=== PATIENT | male | born 1960 ===

== ENCOUNTER 2021-07-23 18:08 | Inpatient (IN) | payer OTHER ==
[~2021-07-23] VITALS: Ht 186.7 cm; Wt 135.3 kg
[2021-07-23] MEDS ORDERED: IV RINGERS SOLUTION,LACTATED 1,000 ML IV ONE (18:30)
[2021-07-23] MEDS ORDERED: MORPHINE SULFATE 2 MG/ML DISP.SYRIN. IV ONE (18:45)
--- NOTE | 2021-07-23 18:46 | PHYS DOC ---
Past History Past Medical History: A-Fib, Diabetes (CHIP AVILA) Past Surgical History: No Surgical History (CHIP AVILA) General Adult EDM: Chief Complaint: SYNCOPE HPI: HPI: Patient is a 61 year old male with history of A. fib and diabetes type 2 known COVID positive who presents with 5-day history of increased weakness and diarrhea. Patient states that he had a syncopal episode at home where he did hit his head. Patient reports associated nausea and 4/10 general abdominal pain. 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 Patient denies use of daily oxygen at home. Patient denies headache, vision changes, chest pain, palpitations, shortness of breath, cough, constipation, emesis. (CHIP AVILA) Review of Systems: Review of Systems: Constitutional: Denies fever or chills Eyes: Denies change in visual acuity HENT: Denies nasal congestion or sore throat Respiratory: See HPI Cardiovascular: See HPI GI: See HPI : Denies dysuria or hematuria Musculoskeletal: Denies back pain or joint pain Integument: Denies rash or other skin lesions Neurologic: See HPI (CHIP AVILA) Current Medications: Current Meds: Current Medications Medications (Trade) Dose Ordered Sig/Vannessa Start Time Stop Time Status Last Admin Dose Admin Lactated Ringer's 1,000 ml @ 1,000 mls/hr 1X ONCE 07/23/21 18:30 07/23/21 19:29 UNV (CHIP AVILA) Physical Exam: PE: Constitutional: Patient appears extremely fatigued, well developed, well nourished. HENT: Normocephalic, atraumatic, bilateral external ears normal, oropharynx moist, nose normal. Eyes: PERRLA, EOMI, conjunctiva normal, no discharge. Neck: Normal range of motion, no tenderness, supple, no stridor. Cardiovascular: Regular heart rate, no edema. Lungs & Thorax: Breath sounds decreased diffusely. Abdomen: Bowel sounds normal, soft, no tenderness, no masses, no pulsatile masses. Skin: Warm, dry, no erythema, no rash. Back: No tenderness, no CVA tenderness. Extremities: No tenderness, no cyanosis, no clubbing, ROM intact, no edema. Neurologic: Alert and oriented x3, normal motor function, normal sensory function, no focal deficits noted. (CHIP AVILA) Current Patient Data: Labs: Laboratory Tests Test 07/23/21 18:50 White Blood Count 5.4 x10^3/uL (4.0-11.0) Red Blood Count 6.36 x10^6/uL (4.30-5.70) Hemoglobin 16.6 g/dL (13.0-17.5) Hematocrit 51.4 % (39.0-53.0) Mean Corpuscular Volume 81 fL (79-100) Mean Corpuscular Hemoglobin 26 pg (25-35) Mean Corpuscular Hemoglobin Concent 32 g/dL (31-37) Red Cell Distribution Width 19.6 % (11.5-14.5) Platelet Count 120 x10^3/uL (140-400) Neutrophils (%) (Auto) 64 % (31-73) Lymphocytes (%) (Auto) 23 % (24-48) Monocytes (%) (Auto) 13 % (0-9) Eosinophils (%) (Auto) 0 % (0-3) Basophils (%) (Auto) 0 % (0-3) Neutrophils # (Auto) 3.4 x10^3uL (1.8-7.7) Lymphocytes # (Auto) 1.2 x10^3/uL (1.0-4.8) Monocytes # (Auto) 0.7 x10^3/uL (0.0-1.1) Eosinophils # (Auto) 0.0 x10^3/uL (0.0-0.7) Basophils # (Auto) 0.0 x10^3/uL (0.0-0.2) Sodium Level 134 mmol/L (136-145) Potassium Level 3.6 mmol/L (3.5-5.1) Chloride Level 97 mmol/L (98-107) Carbon Dioxide Level 26 mmol/L (21-32) Anion Gap 11 (6-14) Blood Urea Nitrogen 19 mg/dL (8-26) Creatinine 1.1 mg/dL (0.7-1.3) Estimated GFR (Cockcroft-Gault) 67.8 BUN/Creatinine Ratio 17 (6-20) Glucose Level 117 mg/dL (70-99) Calcium Level 7.7 mg/dL (8.5-10.1) Total Bilirubin 0.4 mg/dL (0.2-1.0) Aspartate Amino Transf (AST/SGOT) 26 U/L (15-37) Alanine Aminotransferase (ALT/SGPT) 24 U/L (16-63) Alkaline Phosphatase 127 U/L (46-116) Troponin I High Sensitivity 46 ng/L (4-75) Total Protein 7.1 g/dL (6.4-8.2) Albumin 3.0 g/dL (3.4-5.0) Albumin/Globulin Ratio 0.7 (1.0-1.7) Vital Signs: Vital Signs Date Time Temp Pulse Resp B/P (MAP) Pulse Ox O2 Delivery O2 Flow Rate FiO2 07/23/21 18:30 99.3 68 22 102/66 (78) 95 Nasal Cannula 4.0 (CHIP AVILA) EKG: EKG: EKG Interpreted by Dr. Chiang: 101 bpm irregularly irregular rhythm. No STEMI. (CHIP AVILA) Radiology/Procedures: Radiology/Procedures: PROCEDURE: CT HEAD AND CERVICAL SPINE WO Exam: CT head and cervical spine without contrast INDICATION: Syncope TECHNIQUE: Sequential axial images through the head and cervical spine were obtained without the administration of IV contrast. Exposure: One or more of the following in the visualized dose reduction techniques were utilized for this examination: 1. Automated exposure control 2. Adjustment of the MA and/or KV according to patient size 3. Use of iterative of reconstructive technique Comparisons: None FINDINGS: Head: No focal parenchymal lesion or hemorrhage is identified. There is no midline shift or sulcal effacement. No acute vascular territory infarction is identified. Perez-white distinction is preserved. The ventricular system is within normal limits without compression hydrocephalus. The basal cisterns are well maintained. The visualized portions of the paranasal sinuses and mastoid air cells are well- pneumatized. No acute fractures. Cervical spine: Reversal of the normal cervical lordosis which may positional. Vertebral body heights are well-maintained. Fracture to the cervical spine is not identified. Multilevel spondylotic change in cervical spine with degenerative disc disease greatest at C6-C7. Mild bilateral facet arthropathy is also noted in the c ervical spine. Visualized paraspinal soft tissues are unremarkable. IMPRESSION: 1. No acute intracranial abnormality. 2. Negative CT C-spine for acute traumatic injury. Electronically signed by: Lin Portillo MD (07/23/2021 7:04 PM) [facility]CHIP [facility] Heart Score: C/O Chest Pain: No (CHIP AVILA) Course & Med Decision Making: Course & Med Decision Making Pertinent Labs and Imaging studies reviewed. (See chart for details) Patient is known Covid positive and now has a new oxygen requirement. Patient will be admitted to hospitalist service. (CHIP AVILA) Dragon Disclaimer: Dragon Disclaimer: This electronic medical record was generated, in whole or in part, using a voice recognition dictation system. (CHIP AVILA) Departure Departure: Impression: Primary Impression: Pneumonia due to COVID-19 virus Additional Impression: Respiratory failure with hypoxia Qualified Codes: J96.01 - Acute respiratory failure with hypoxia Disposition: ADMITTED INPATIENT Admitting Physician: German Maddox (CHIP AVILA) Condition: GUARDED Referrals: PCP,ARTURO (PCP) Attending Signature Attending Signature I have participated in the care of this patient and I have reviewed and agree with all pertinent clinical information above including history, exam, and recommendations. (KENNETH CHIANG MD) CHIP AVILA Jul 23, 2021 18:46 KENNETH CHIANG MD Jul 24, 2021 04:47
[2021-07-23] MEDS ORDERED: DEXAMETHASONE SOD PHOS 10 MG/ML VIAL. ONE (18:51)
--- NOTE | 2021-07-23 18:53 | EKG ---
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
[2021-07-23] MEDS ORDERED: DEXAMETHASONE SOD PHOS 10 MG/ML VIAL. IVP ONE (19:00)
--- NOTE | 2021-07-23 19:07 | RAD ---
Exam: CT head and cervical spine without contrast INDICATION: Syncope TECHNIQUE: Sequential axial images through the head and cervical spine were obtained without the admi nistration of IV contrast. Exposure: One or more of the following in the visualized dose reduction techniques were utilized for this examination: 1. Automated exposure control 2. Adjustment of the MA and/or KV according to patient size 3. Use of iterative of reconstructive technique Comparisons: None FINDINGS: Head: No focal parenchymal lesion or hemorrhage is identified. There is no midline shift or sulcal effaceme nt. No acute vascular territory infarction is identified. Perez-white distinction is preserved. The ventricular system is within normal limits without compression hydrocephalus. The basal cisterns are well maintained. The visualized portions of the paranasal sinuses and mastoid air cells are well-pneumatized. No acute fractures. Cervical spine: Reversal of the normal cervical lordosis which may positional. Vertebral body heights are well-mainta ined. Fracture to the cervical spine is not identified. Multilevel spondylotic change in cervical spine with degenerative disc disease greatest at C6-C7. Mil d bilateral facet arthropathy is also noted in the cervical spine. Visualized paraspinal soft tissues are unremarkable. IMPRESSION: 1. No acute intracranial abnormality. 2. Negative CT C-spine for acute traumatic injury. Electronically signed by: Lin Portillo MD (07/23/2021 7:04 PM) [facility]
[2021-07-23] MEDS ORDERED: ONDANSETRON PF 4 MG/2 ML VIAL. ONE (19:08)
[2021-07-23 19:32] LABS: BASO % 0 % (0-3); EOS % 0 % (0-3); HEMATOCRIT 51.4 % (39.0-53.0); HEMOGLOBIN 16.6 g/dL (13.0-17.5); LYMPH # 1.2 x10^3/uL (1.0-4.8); LYMPH % 23 % (24-48); MEAN CORPUSCULAR HEMOGLOBIN 26 pg (25-35); MEAN CORPUSCULAR HGB CONC 32 g/dL (31-37); MEAN CORPUSCULAR VOLUME 81 fL (79-100); MONO # 0.7 x10^3/uL (0.0-1.1); MONO % 13 % (0-9); NEUT # 3.4 x10^3uL (1.8-7.7); NEUT % 64 % (31-73); PLATELET COUNT 120 x10^3/uL (140-400); RED BLOOD COUNT 6.36 x10^6/uL (4.30-5.70); RED CELL DISTRIBUTION WIDTH 19.6 % (11.5-14.5); WHITE BLOOD COUNT 5.4 x10^3/uL (4.0-11.0)
[2021-07-23 19:45] LABS: CALCIUM 7.7 mg/dL (8.5-10.1); CREATININE 1.1 mg/dL (0.7-1.3); GFR 67.8; POTASSIUM 3.6 mmol/L (3.5-5.1)
[2021-07-23 19:51] LABS: ALBUMIN/GLOBULIN RATIO 0.7 (1.0-1.7); TOTAL BILIRUBIN 0.4 mg/dL (0.2-1.0); TOTAL PROTEIN 7.1 g/dL (6.4-8.2)
--- NOTE | 2021-07-23 20:08 | RAD ---
EXAM: AP View of the chest DATE: 07/23/2021 6:22 PM INDICATION: Reason: syncope / Spl. Instructions: / History: COMPARISON: No Prior FINDINGS: Patchy opacities right mid lung and right lung base as well as peripheral left lung base. The heart is upper limits normal in size. No pleural effusion or pneumothorax. IMPRESSION: Bilateral parenchymal airspace opacities likely atelectasis or consolidative process such as pneumoni a. Imaging follow-up to resolution is recommended. Electronically signed by: Kojo Marquez MD (07/23/2021 8:05 PM) [facility]
[2021-07-23] MEDS ORDERED: AZITHROMYCIN 500 MG in IV NORMAL SALINE 250ML 250 ML IV ONE (20:15)
[2021-07-23] MEDS ORDERED: ENOXAPARIN ** NOTE DOSE ** SYRINGE SQ ONE (20:15)
[2021-07-23] MEDS ORDERED: ONDANSETRON PF 4 MG/2 ML VIAL. IVP PRN (20:30)
[2021-07-23] MEDS ORDERED: AZITHROMYCIN 500 MG VIAL. IV ONE (20:48)
[2021-07-23] MEDS ORDERED: IV NORMAL SALINE 250ML 250 ML ONE (20:48)
[2021-07-23] MEDS ORDERED: REMDESIVIR LOAD in IV NORMAL SALINE 250ML TV IV ONE (21:15)
--- NOTE | 2021-07-23 22:54 | NUR ---
The patient, BRIAN QUIROZ, 61 y/o, M admitted by ALEIDA NEWSOME MD, to room 103, was given written information regarding hospital policies, unit procedures and contact persons. Valuables were checked and left with the pt. Vitals assessed. Medical history and medication use reviewed. Will continue to monitor.
[2021-07-23 23:00] VITALS: BP 118/89
[2021-07-23] MEDS ORDERED: ANTI-COAG MONITOR BY PHARMACY. MC PRN (23:45)
[2021-07-23] MEDS ORDERED: ATOR20TA58 PO (23:50)
[2021-07-23] MEDS ORDERED: SEMA1PEN SQ (23:50)
[2021-07-23] MEDS ORDERED: APIX5TAB3 PO (23:50)
[2021-07-23] MEDS ORDERED: OMEP20CA16 PO (23:50)
[2021-07-23] MEDS ORDERED: FURO-68 PO (23:50)
[2021-07-23] MEDS ORDERED: GLIM4TAB8 PO (23:50)
[2021-07-23] MEDS ORDERED: FLUT1BLS IH (23:50)
[2021-07-23] MEDS ORDERED: METO50TA6 PO (23:50)
[2021-07-23] MEDS ORDERED: DOXY100C3 PO (23:50)
[2021-07-24] MEDS: ZOLPIDEM 5 MG TABLET. PO PRN (00:05)
[2021-07-24] MEDS: METOPROLOL TART IMMED RELEASE 50 MG TABLET PO SCH ×3 (00:05→21:00)
[2021-07-24] MEDS: APIXABAN 5 MG TABLET. PO SCH ×3 (00:05→21:35)
--- NOTE | 2021-07-24 05:16 | NUR ---
Nursing note: Pt arrived to unit alert & oriented, on 4L NC from baseline RA. Able to decrease O2 to 3.5L, however pt removes NC while asleep. Tele shows AF with PVCs, rate controlled while asleep but up to 120s while ambulating. Pt had no c/o pain or nausea, tolerated small amount of food well. MD notified of pt arrival and med rec completed. 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
[2021-07-24 06:00] VITALS: BP 124/96
[2021-07-24 08:00] VITALS: BP 121/85
[2021-07-24] MEDS: PANTOPRAZOLE 40 MG TABLET. PO SCH (08:08)
[2021-07-24] MEDS: GLIMEPIRIDE 2 MG TABLET PO SCH (08:10)
[2021-07-24] MEDS: DEXAMETHASONE SOD PHOS 10 MG/ML VIAL. IVP SCH (08:10)
[2021-07-24] MEDS: FUROSEMIDE 40 MG TABLET PO SCH (08:11)
[2021-07-24] MEDS ORDERED: APIXABAN 5 MG TABLET. PO SCH (09:00)
[2021-07-24] MEDS ORDERED: METOPROLOL TART IMMED RELEASE 50 MG TABLET PO SCH (09:00)
[2021-07-24] MEDS: FLUTICASONE/VILANTEROL 200/25 INHALER. INH SCH (09:16)
[2021-07-24 11:16] VITALS: BP 102/81
[2021-07-24 14:34] VITALS: BP 110/74
--- NOTE | 2021-07-24 18:02 | PN ---
DATE: 07/24/2021 SUBJECTIVE: The patient is resting, slightly propped up in bed, in no apparent respiratory distress. He is feeling generally much better, although continued to have aches and pains and some nausea, but no vomiting. He has continued to require oxygen and he is maintaining his oxygen saturation at 94% on 4 liters of oxygen. However, he denied any chest pain. PHYSICAL EXAMINATION: GENERAL: When I examined him, he looked well and was clearly in no apparent respiratory distress. VITAL SIGNS: His heart rate was 99, blood pressure is 118/89, temperature 97.5, respiratory rate was 18, and oxygen saturation was 95% on 4 liters of oxygen. The rest of the clinical exam is stable. LABORATORY DATA: Has no lab work done this morning. ASSESSMENT: 1. Acute hypoxic respiratory failure. 2. COVID-19 pneumonia. 3. Type 2 diabetes mellitus. 4. Hypertension. 5. Hyperlipidemia. 6. Chronic obstructive pulmonary disease. 7. Atrial fibrillation. 8. Nicotine addiction. PLAN: To continue with IV remdesivir. Continue with IV dexamethasone. Continue with all his other medication. Continue with Zithromax. We will follow him on a daily basis and decide on further management accordingly. ALAINA FISCHER: Clay TID: [id number]
[2021-07-24 19:00] VITALS: BP 128/88
[2021-07-24] MEDS: REMDESIVIR 100mg in NORMAL SALINE 250ML X 4 DAYS IV SCH (21:00)
[2021-07-24] MEDS: ATORVASTATIN CALCIUM 20 MG TABLET PO SCH (21:35)
[2021-07-24 23:00] VITALS: BP 109/60
--- NOTE | 2021-07-25 03:27 | NUR ---
Nursing note: Daylight Savings Time Pt in bed watching TV on round. No needs at this time.
--- NOTE | 2021-07-25 03:35 | NUR ---
Nursing note: Pt educated on COVID, O2 requirements, and pneumonia/COVID care. Pt expressed difficulty falling asleep to RN at 0200.
[2021-07-25 07:00] VITALS: BP 122/83
[2021-07-25] MEDS ORDERED: ONDANSETRON PF 4 MG/2 ML VIAL. IVP PRN (07:30)
[2021-07-25] MEDS: DEXAMETHASONE SOD PHOS 10 MG/ML VIAL. IVP SCH (07:38)
[2021-07-25] MEDS: METOPROLOL TART IMMED RELEASE 50 MG TABLET PO SCH ×2 (07:38→20:40)
[2021-07-25] MEDS: GLIMEPIRIDE 2 MG TABLET PO SCH (07:38)
[2021-07-25] MEDS: FUROSEMIDE 40 MG TABLET PO SCH ×2 (07:38→08:00)
[2021-07-25] MEDS: AZITHROMYCIN 250 MG TABLET. PO SCH (07:39)
[2021-07-25] MEDS: PANTOPRAZOLE 40 MG TABLET. PO SCH (07:39)
[2021-07-25] MEDS: FLUTICASONE/VILANTEROL 200/25 INHALER. INH SCH (07:39)
[2021-07-25] MEDS: APIXABAN 5 MG TABLET. PO SCH ×2 (07:39→20:39)
[2021-07-25 08:07] LABS: ALBUMIN 2.4 g/dL (3.4-5.0); ALBUMIN/GLOBULIN RATIO 0.5 (1.0-1.7); CALCIUM 7.7 mg/dL (8.5-10.1); CREATININE 0.8 mg/dL (0.7-1.3); POTASSIUM 4.5 mmol/L (3.5-5.1); TOTAL BILIRUBIN 0.4 mg/dL (0.2-1.0)
[2021-07-25 11:00] VITALS: BP 122/68
--- NOTE | 2021-07-25 13:43 | PN ---
DATE: 07/25/2021 SUBJECTIVE: The patient is sitting on the edge of the bed, in no apparent distress. He continued to have some cough with scanty whitish sputum. Did complain of some shortness of breath on exertion, but denied any chills, rigors or fever. He continued to require 3 liters of oxygen. PHYSICAL EXAMINATION: GENERAL: When I saw him this afternoon, he looked pale, but jaundice, cyanosed from thyromegaly. No jugular venous distention. No limb edema. VITAL SIGNS: His heart rate was 89, blood pressure was 122/68, temperature 97.9, respiratory rate 24, and oxygen saturation was 92% on 3 liters of oxygen. HEAD, EYES, EARS, NOSE, AND THROAT: Normocephalic, atraumatic. NECK: Supple. HEART: Normal first and second heart sounds, no gallop or murmur. CHEST: Shows central trachea, equal bilateral chest expansion, air entry, vesicular breath sounds. I could not really appreciate any crepitation or rhonchi. ABDOMEN: Distended, soft, nontender. No guarding or rigidity. No organomegaly. Hernial orifice intact. Bowel sounds normal. NEUROLOGIC: He was grossly intact. LABORATORY DATA: His lab work this morning showed that his white cell count was 5400, hemoglobin 16.6, hematocrit 51, MCV 81 and platelet count of 120,000. Serum sodium was 134, potassium 4.5, chloride 101, bicarbonate 26, anion gap of 7, BUN 22, creatinine 0.8. Estimated GFR was 98 mL per minute. His glucose was 73, calcium was 7.7. Total bilirubin, AST, ALT, alkaline phosphatase were normal. Total protein 7, albumin 2.4. ASSESSMENT: 1. Acute hypoxic respiratory failure. 2. COVID-19 pneumonia. 3. Chronic obstructive pulmonary disease. 4. Type 2 diabetes mellitus. 5. Hypertension. 6. Hyperlipidemia. 7. Atrial fibrillation, rate controlled. 8. Nicotine dependence. PLAN: To continue with IV antibiotic. Continue with dexamethasone. Continue with remdesivir. Continue with all his other medication. He has episodes of atrial fibrillation with rapid ventricular response and if it continues, we might have to add digoxin. I will repeat his chest x-ray and lab work tomorrow and if he remains stable, he can be discharged home on home oxygen. DONNY/SUDEEP DR: DONNY/nts TID: [id number]
[2021-07-25 14:04] LABS: HEMATOCRIT 52.7 % (39.0-53.0); HEMOGLOBIN 16.6 g/dL (13.0-17.5); RED BLOOD COUNT 6.39 x10^6/uL (4.30-5.70); RED CELL DISTRIBUTION WIDTH 19.9 % (11.5-14.5); WHITE BLOOD COUNT 11.4 x10^3/uL (4.0-11.0)
[2021-07-25 19:25] VITALS: BP 126/90
[2021-07-25] MEDS: REMDESIVIR 100mg in NORMAL SALINE 250ML X 4 DAYS IV SCH (20:39)
[2021-07-25] MEDS: ATORVASTATIN CALCIUM 20 MG TABLET PO SCH (20:39)
[2021-07-25] MEDS: ZOLPIDEM 5 MG TABLET. PO PRN (20:59)
[2021-07-25 22:05] VITALS: BP 128/89
[2021-07-26 05:40] VITALS: BP 120/84
[2021-07-26 06:17] LABS: BASO % 0 % (0-3); EOS % 0 % (0-3); HEMOGLOBIN 16.4 g/dL (13.0-17.5); LYMPH # 1.7 x10^3/uL (1.0-4.8); LYMPH % 19 % (24-48); MEAN CORPUSCULAR HEMOGLOBIN 26 pg (25-35); MEAN CORPUSCULAR HGB CONC 32 g/dL (31-37); MEAN CORPUSCULAR VOLUME 82 fL (79-100); MONO # 1.2 x10^3/uL (0.0-1.1); MONO % 13 % (0-9); NEUT # 6.1 x10^3uL (1.8-7.7); NEUT % 68 % (31-73); PLATELET COUNT 127 x10^3/uL (140-400); RED BLOOD COUNT 6.23 x10^6/uL (4.30-5.70); RED CELL DISTRIBUTION WIDTH 19.4 % (11.5-14.5); WHITE BLOOD COUNT 9.1 x10^3/uL (4.0-11.0)
[2021-07-26 06:24] LABS: ALBUMIN 2.7 g/dL (3.4-5.0); ALBUMIN/GLOBULIN RATIO 0.6 (1.0-1.7); CALCIUM 7.8 mg/dL (8.5-10.1); CREATININE 0.8 mg/dL (0.7-1.3); POTASSIUM 3.9 mmol/L (3.5-5.1); TOTAL BILIRUBIN 0.3 mg/dL (0.2-1.0); TOTAL PROTEIN 7.1 g/dL (6.4-8.2)
[2021-07-26] MEDS: GLIMEPIRIDE 2 MG TABLET PO SCH (07:54)
[2021-07-26] MEDS: METOPROLOL TART IMMED RELEASE 50 MG TABLET PO SCH (07:54)
[2021-07-26] MEDS: FUROSEMIDE 40 MG TABLET PO SCH (07:54)
[2021-07-26] MEDS: AZITHROMYCIN 250 MG TABLET. PO SCH (07:54)
[2021-07-26] MEDS: PANTOPRAZOLE 40 MG TABLET. PO SCH (07:54)
[2021-07-26] MEDS: APIXABAN 5 MG TABLET. PO SCH (07:54)
[2021-07-26] MEDS: DEXAMETHASONE SOD PHOS 10 MG/ML VIAL. IVP SCH (07:55)
[2021-07-26] MEDS: FLUTICASONE/VILANTEROL 200/25 INHALER. INH SCH (08:48)
--- NOTE | 2021-07-26 08:49 | RAD ---
EXAM: AP View of the chest DATE: 07/26/2021 8:40 AM INDICATION: covid 19 with worsening oxygen requirement COMPARISON: 07/23/2021 FINDINGS/ IMPRESSION: 1. Heart is mildly enlarged. Aorta is tortuous. 2. Bilateral parenchymal opacities particularly in the peripheral lower lungs are increased consiste nt with progressing consolidative process, such as pneumonia. 3. No pleural effusion or pneumothorax. Electronically signed by: Kojo Marquez MD (07/26/2021 8:47 AM) [facility]
[2021-07-26 09:43] VITALS: BP 107/68
--- NOTE | 2021-07-26 09:44 | HP ---
DATE OF SERVICE: 07/24/2021 ADMIT DATE: 07/23/2021 HISTORY OF PRESENT ILLNESS: The patient is a 61-year-old male patient who presented to the Emergency Room with a complaint of increased weakness and diarrhea. He apparently has tested positive for COVID about a week ago. He stated he has had a syncopal episode at home where he did hit his head. He reports associated nausea and 4/10 generalized abdominal pain. 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 He denied any use of oxygen at home. Denies any headache, vision changes, chest pain, palpitation, cough, constipation or emesis. He was extensively investigated in the Emergency Room, has had lab work as well as imaging studies. His chest x-ray showed the patient has bilateral parenchymal airspace opacities, likely atelectasis or consolidative process such as pneumonia, as he also had fell and hit his head. He had a CT scan of the head and neck, which showed no acute intracranial abnormalities and negative CT C-spine for acute traumatic injury. The patient was admitted with COVID-19 pneumonia, acute hypoxic respiratory failure, started on IV remdesivir, dexamethasone, Zithromax, was continued on all his other home medications. PAST MEDICAL HISTORY: Significant for type 2 diabetes mellitus, hypertension, hyperlipidemia, COPD and atrial fibrillation. PAST SURGICAL HISTORY: Significant for back surgery, appendectomy, bilateral knee arthroscopic surgery. ALLERGIES: He has no known drug allergies. MEDICATIONS: He is currently on the following medication: He is on apixaban 5 mg twice a day, atorvastatin 20 mg at bedtime, metoprolol tartrate 50 mg twice a day, furosemide 40 mg once a day, Breo Ellipta 1 puff once a day, omeprazole 20 mg once a day, semaglutide or Ozempic 1 mg subcutaneous once weekly and glimepiride 4 mg daily. FAMILY HISTORY: Has two older sisters that are healthy. His father at age of 71 because of liver cirrhosis and mother at age of 84 because of congestive heart failure. SOCIAL HISTORY: He has been living with his significant other for the last 27 years. He has no children of his own. He has children and grandchildren that are his 's. He drinks alcohol occasionally. He continued to smoke a pack a day, does not use any drugs. 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 REVIEW OF SYSTEMS: The patient denied any blurring of vision, cataracts, glaucoma or macular degeneration. Denied any earache, tinnitus or sensory deafness. Denied nosebleed, stuffy nose or postnasal drip. Denied any sore throat, sore tongue, toothache, hoarseness of voice or difficulty swallowing. Denied any nausea, vomiting, diarrhea or constipation. Denied any chest pain, shortness of breath, orthopnea or paroxysmal nocturnal dyspnea. Denied any cough, phlegm or hemoptysis. Denied any chills, rigors or fever. PHYSICAL EXAMINATION: GENERAL: On arrival to the Emergency Room, he looked well and was clearly in no apparent respiratory distress. There is no pallor, jaundice, cyanosis or thyromegaly. No jugular venous distention. No limb edema. VITAL SIGNS: His heart rate was 68, blood pressure is 102/66, temperature was 99.3, respiratory rate 22, and oxygen saturation was 95% on 4 liters of oxygen. HEAD, EYES, EARS, NOSE, AND THROAT: Normocephalic, atraumatic. NECK: Supple. HEART: Showed normal first and second heart sounds, no gallop, rub or murmur. CHEST: Clear to auscultation, no crepitation or rhonchi. ABDOMEN: Distended, soft, nontender. NEUROLOGIC: He was awake, alert, responding appropriately. Cranial nerves intact. He moves extremities without difficulty, ambulates without assistance or assistive devices. LABORATORY DATA: Showed a white cell count 5400, hemoglobin 16.6, hematocrit 51, MCV 81 and platelet count of 120,000 with normal manual differential. His chemistry showed a serum sodium 134, potassium 3.6, chloride 97, bicarbonate 26, anion gap of 11, BUN 19, creatinine 1.1. Estimated GFR was 67 mL per minute. His glucose 117, calcium was 7.7. Total bilirubin, AST, ALT were normal. Alkaline phosphatase slightly elevated. His troponin was 45. Total protein was 7.1, albumin was 3. ASSESSMENT: In summary, this is a 61-year-old male patient who was admitted with acute hypoxic respiratory failure, COVID-19 pneumonia. Other medical problems include hypertension, hyperlipidemia, COPD, type 2 diabetes and atrial fibrillation. DONNY/ANITA/DAVID DR: Clay TID: [id number]
[2021-07-26 10:08] VITALS: BP 115/65
[2021-07-26] MEDS ORDERED: AZIT250T PO (13:58)
[2021-07-26] MEDS ORDERED: DEXA6TAB6 PO (13:58)
--- NOTE | 2021-07-26 14:35 | DS ---
DATE OF DISCHARGE: 07/26/2021 HOSPITAL COURSE: The patient is a 61-year-old male patient who was admitted to [facility] through the Emergency Room where he presented with a complaint of increasing weakness, diarrhea. He apparently tested positive for COVID-19 about a week prior to admission, had syncopal episode at home where he did hit his head. He reports associated nausea and 4/10 generalized abdominal pain. 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 He denied any use of oxygen at home. Denied any headache, vision changes, chest pain, palpitation. He has extensive workup in the Emergency Room including imaging studies and lab work. His chest x-ray showed he has bilateral parenchymal airspace opacities, likely atelectasis or consolidative process such as pneumonia. CT scan of the head and neck showed no evidence of acute intracranial abnormality. CT scan of the spine was negative for any traumatic injury. He was admitted with diagnosis of COVID-19 pneumonia and acute hypoxic respiratory failure. He was started on IV dexamethasone, IV remdesivir, Zithromax and continued all his medication. He did actually very well. PHYSICAL EXAMINATION: GENERAL: When I saw him today, he was sitting on the edge of the bed comfortably, in no apparent respiratory distress. There was no pallor, jaundice, cyanosis or thyromegaly. No jugular venous distention. No limb edema. VITAL SIGNS: Her heart rate was 88, blood pressure is 115/65, his temperature was 97.5, respiratory rate was 18 and oxygen saturation was 95% at rest. He apparently dropped his oxygen down to 85% on room air on exertion. HEAD, EYES, EARS, NOSE, AND THROAT: Normocephalic, atraumatic. NECK: Supple. HEART: Normal first and second heart sounds. No gallop, rub or murmur. CHEST: Clear to auscultation, no crepitation or rhonchi. ABDOMEN: Distended, soft, nontender. NEUROLOGIC: He was grossly intact. His intake and output incompletely recorded. LABORATORY DATA: His lab work as of this morning showed a white cell count of 9.1, hemoglobin 16, hematocrit 51, MCV 82 and platelet count of 127,000 with normal manual differential. His chemistry showed a serum sodium 140, potassium 3.9, chloride 104, bicarbonate 29, anion gap of 7, BUN 19, creatinine 0.8. Estimated GFR was 98 mL per minute. His glucose was 84, calcium was 7.8. Total bilirubin, AST, ALT, alkaline phosphatase were normal. Total protein 7.1, albumin was 2.7. DISCHARGE MEDICATIONS: He was discharged home to continue on oral azithromycin 250 mg once a day for 3 more days, dexamethasone 6 mg daily for 6 more days, to continue on apixaban 5 mg twice a day, atorvastatin 20 mg at bedtime. He is on Breo Ellipta 1 puff daily, furosemide 40 mg daily, glimepiride 4 mg once a day, metoprolol tartrate 50 mg twice a day, omeprazole 20 mg once a day, and Ozempic 1 mg in 0.75 mL injection subcutaneously once a week. FINAL DISCHARGE DIAGNOSES: 1. Acute respiratory failure with hypoxia. 2. COVID-19 pneumonia. 3. Chronic obstructive pulmonary disease. 4. Type 2 diabetes mellitus. 5. Hypertension. 6. Hyperlipidemia. 7. Atrial fibrillation, rate controlled, well anticoagulated. 8. Nicotine dependence. The patient will continue with antibiotic and steroids orally, was also discharged home with oxygen. DONNY/AURELIANO FISCHER: Clay TID: [id number]
--- NOTE | 2021-07-26 14:53 | NUR ---
VSS. AMADOR. Discharge orders placed this afternoon. Pt to be sent home with home oxygen as needed. IV discontinued. Pts outside to drive pt home. Pt walked to front door independently. All belongings sent with pt.
[2021-07-26] MEDS ORDERED: LACTOBACILLUS RHAMNOSUS GG 1 CAPSULE. PO SCH (21:00)
[2021-07-30] MEDS ORDERED: NON FORMULARY ITEM (Semaglutide (Ozempic) 1 MG) SQ SCH (09:00)
== END 2021-07-26 13:00 | disposition home or self-care (01) | DRG 177 ==
LOC: ER 18:08 → 1 SOUTH 20:24
PROVIDERS: ADMIT Internal Medicine; ATTEND Internal Medicine
PROC: XW033E5 Introduction of Remdesivir Anti-infective into Peripheral Vein, Percutaneous Approach, New Technology Group 5 (ICD-10-PCS; principal; 2021-07-23)
DX: U07.1 COVID-19 (principal); J96.01 Acute respiratory failure with hypoxia; J12.82 Pneumonia due to coronavirus disease 2019; J44.0 Chronic obstructive pulmonary disease with (acute) lower respiratory infection; J98.11 Atelectasis; I48.91 Unspecified atrial fibrillation; E11.9 Type 2 diabetes mellitus without complications; I10 Essential (primary) hypertension; E78.5 Hyperlipidemia, unspecified; F17.210 Nicotine dependence, cigarettes, uncomplicated; Z82.49 Family history of ischemic heart disease and other diseases of the circulatory system; Z90.49 Acquired absence of other specified parts of digestive tract; Z99.81 Dependence on supplemental oxygen
CPT/HCPCS: 36415; 70450; 71045; 72125; 80053; 84484; 85025; 85027; 93005; 96361; 96372; 96374; 96375; 99406; J0456; J1100; J1650; J2270; J2405; J7050; J7120; 99285-25

== ENCOUNTER → 2022-01-04 | Outpatient (CLI) | payer OTHER ==
[~2022-01-04] MED LIST: APIX5TAB3 PO; ATOR20TA58 PO; AZIT250T PO; DEXA6TAB6 PO; DOXY100C3 PO; FLUT1BLS IH; FURO-68 PO; GLIM4TAB8 PO; METO50TA6 PO; OMEP20CA16 PO; SEMA1PEN SQ
--- NOTE | 2022-01-04 15:57 | RAD ---
EXAM: XR KNEE_LT 1-2 VIEWS, XR LUMBAR SPINE 2-3V, XR HAND_RIGHT 2 VIEWS 01/04/2022 10:35 AM CLINICAL INDICATION: Disability determination. COMPARISON: None TECHNIQUE: PA and lateral views of the right hand. AP and lateral views of the left knee. AP, latera l, and coned-down lateral views of the lumbar spine FINDINGS: Right hand: No acute fracture. There is moderate joint space narrowing of the radiocarpal joint with remodeling of the articular surface of the radius. Moderate to severe narrowing of the midcarpal join t, particularly at the lunate-capitate articulation. There is a mild to moderate joint space narrowin g and small osteophytes at the first CMC and triscaphe joints. Moderate to severe joint space narrowi ng and large osteophytes at the thumb IP joint and second DIP joint. No erosions. Soft tissues normal . Left knee: No acute fracture. Alignment is normal. Moderate medial and mild lateral compartment narro wing. There are tiny tricompartmental osteophytes. Chondrocalcinosis is noted. No joint effusion. Lumbar spine: There are 5 nonrib-bearing lumbar vertebral bodies. No acute fracture. There appear to be chronic bilateral L5 pars defects. There is approximately 1.6 cm anterolisthesis of L5 on S1. Mode rate joint space narrowing at L5-S1. Minimal retrolisthesis of L1 on L2. Mild joint space narrowing a t the remaining levels with tiny anterior osteophytes. Degenerative joint disease of the sacroiliac j oints, greater on the right. IMPRESSION: 1. 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 2. Left knee: Tricompartmental degenerative joint disease, moderate in the lateral compartment. 3. Lumbar spine: Chronic bilateral L5 pars defects with grade 2 spondylolisthesis at L5-S1. Degenerat ellen disc disease. Electronically signed by: Clau Tapia MD (01/04/2022 3:55 PM) [id number]
== END ==
LOC: RAD 10:27
PROVIDERS: ATTEND Family Medicine
DX: Z02.71 Encounter for disability determination (principal); M19.041 Primary osteoarthritis, right hand; M25.741 Osteophyte, right hand; M11.241 Other chondrocalcinosis, right hand; M43.17 Spondylolisthesis, lumbosacral region; M51.36 Other intervertebral disc degeneration, lumbar region; M48.07 Spinal stenosis, lumbosacral region; M46.1 Sacroiliitis, not elsewhere classified
CPT/HCPCS: 72100; 73120; 73560